=== PATIENT | female | born 1960 | race Caucasian/White ===

== ENCOUNTER 2024-07-10 12:42 | Inpatient (IN) | payer MEDICAID, SELFPAY ==
[2024-07-10] VITALS (14 sets, daily range): BP systolic 101–132; BP diastolic 44–69; PULSE 71–96; RESP 12–96; TEMP 36.1–37.2; O2SAT 94–99; BMI 25.0
--- NOTE | 2024-07-10 13:06 | EKG_ITS ---
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
--- NOTE | 2024-07-10 13:07 | XR_ITS ---
Examination: CT pelvis with intravenous contrast. 2-D sagittal and coronal reconstructions. Date and time of exam:July 10, 2024 at 1436 hours INDICATIONS: Boil in the vaginal region 9 days CTDI: vol (mGy) :9.4 DLP: (mGycm) : 242 Technique: Multiple 3 mm axial sections of the pelvis have been obtained with the 64 slice high resolution scanner. 60 cc Isovue 370 intravenous 2-D sagittal and coronal reconstructions. Low dose protocols were performed. One or more of the following dose reduction techniques were used; automated exposure control, adjustment of the mA and/or KV according to patient size, use of iterative reconstruction technique. Findings: No free fluid in the pelvis Atrophic anteverted uterus Urinary bladder is intact Mass in the uterus cervix not depicted Large fluid collection in the right labia axial image 117 at least 8.6 x 2.7 cm consistent with abscess This fluid collection extends to the right perianal region. IMPRESSION: Large fluid collection consistent with abscess in the right labia which extends to the right perianal region, recommend surgical consultation
--- NOTE | 2024-07-10 13:09 | PD.EDADULT ---
ED General RME/HPI General Chief complaint: Skin/Abscess/Foreign Body Stated complaint: BOIL IN VAGINAL AREA X9 DAYS Time Seen by Provider: 07/10/24 12:53 Arrival date/time: 07/10/24 12:42 CC: Right inner thigh pia-/vaginal pain HPI ongoing for the past 9 to 10 days with increase in severity, patient states it opened up 2 days ago and drained some but now is becoming increasingly large in size. Localized pain 6-8 on a 10 scale. Patient states she has had abscesses in this area on the left side in the past. Patient smokes approximately a pack a day has significant COPD. Patient denies chest pain shortness of breath painful urination bloody urination constipation or diarrhea. Related Data Home Medications ?Medication ?Instructions ?Recorded ?Confirmed albuterol sulfate 2.5 mg/3 mL 2.5 mg inhalation PRN PRN 10/28/23 07/10/24 (0.083 %) solution for nebulization Shortness Of Breath Or Wheezing atorvastatin 80 mg tablet 80 mg PO DAILY 10/28/23 07/10/24 fluticasone 500 mcg-salmeterol 50 1 inh inhalation PRN PRN Shortness 10/28/23 07/10/24 mcg/dose blistr powdr for Of Breath Or Wheezing inhalation (Advair Diskus) apixaban 5 mg tablet (Eliquis) 5 mg PO BID 07/10/24 07/10/24 famotidine 20 mg tablet 20 mg PO HS PRN stomach upset 07/10/24 07/10/24 furosemide 20 mg tablet 20 mg PO QDAY 07/10/24 07/10/24 insulin glargine 100 unit/mL (3 40 unit subcut HS 07/10/24 07/10/24 mL) subcutaneous pen (Basaglar KwikPen U-100 Insulin) metoprolol tartrate 25 mg tablet 12.5 mg PO QDAY 07/10/24 07/10/24 spironolactone 25 mg tablet 25 mg PO QDAY 07/10/24 07/10/24 Previous Rx's ?Medication ?Instructions ?Recorded aspirin 81 mg chewable tablet 81 mg PO DAILY 30 days #0 tabs 10/30/23 blood-glucose sensor (FreeStyle #1 ea 10/30/23 Praveen 3 Sensor device) Allergies Allergy/AdvReac Type Severity Reaction Status Date / Time No Known Allergies Allergy Verified 07/10/24 12:45 Review of Systems Review of Systems Narrative Review of Systems: GEN: No fever, no chills, no weight loss EYES: No discharge, no visual changes, no pain HEENT: No ear pain, no congestion, no sore throat PULM: No shortness of breath, no cough, no congestion CV: No chest pain, no dyspnea on exertion, no palpitations GI: No nausea, no vomiting, no diarrhea, no pain, no constipation : No frequency, no urgency, no dysuria MUSC/SKEL: No joint pain, no back pain SKIN: + abscess, No rash PSYCH: No hallucinations, no depression HEME/LYMPH: No easy bleeding or bruising tendencies NEURO: No weakness, no headache Past Medical History Past Medical History 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, pt not sure if has ashby's palsy.); Negative Seizures CARDIAC: Positive Myocardial Infarction, Coronary Artery Disease and Hypertension; Negative Congestive Heart Failure RESPIRATORY: Positive Chronic Obstructive Pulmonary Disease (COPD); Negative Asthma (no per pt) GENITOURINARY: Negative Renal Disease REPRODUCTIVE: Positive Previous Pregnancies ENDOCRINE: Positive Diabetes Mellitus Type 2; Negative Diabetes Mellitus Type 1 HEMATOLOGIC: Negative Blood Disorders or Anemia OTHER HISTORY: Negative Blood Transfusions or Anesthesia Reactions Family History FAMILY HISTORY: Positive Family Cardiac Disorders Surgical History SURGICAL: Positive Coronary Stent Social History SMOKING STATUS: Current every day smoker SUBSTANCE USE: does not use ED Exam Narrative Physical exam: [General: Mild discomfort but not in any acute distress, smells of cigarette smoke Head normocephalic HEENT: Eyes pupils are PERRLA EOMs intact mouth pink dry membranes uvula is midline swallow symmetrical within acceptable limits Neck is supple nontender Chest equal chest rise nontender to palpation Respiratory: Clear to auscultation no wheezes crackles or rubs CV: Rate rhythm is regular no murmurs rubs or clicks Abdomen is distended secondary to body habitus soft nontender no masses positive bowel sounds all 4 quadrants Back: No CVA tenderness no spinous process tenderness from cervical spine thoracic and lumbar spine Skin: Erythematous and edematous lateral of the right labia majora that extends down to the right buttock lateral to the perirectal area. Exquisitely tender to palpation no open sites no oozing of exudate. No active bleeding or lesions. Left side perianal area is unremarkable in nature nontender nonerythematous and nonedematous. Otherwise skin is intact no petechiae rash induration ulceration or crepitus Extremities: Moving all extremity against resistance cap refill less than 2 seconds neurosensory intact Neuro: Awake alert oriented x3 Glascow coma 15 no focal deficits] Course Quality Measures none Orders Category Date Time Status COVID-19 Screening Questionnaire NOW Care 07/10/24 16:[address] Screening NOW Care 07/10/24 13:07 Active Set Up [employer] Q4H START 00 Care 07/10/24 13:06 Active Continuous Pulse Oximetry STAT Care 07/10/24 13:06 Completed Decision to Admit X1 Care 07/10/24 16:27 Completed EKG (ED ONLY) *Do not use* NOW Care 07/10/24 13:06 Completed In and Out Catheter X1PRN Care 07/10/24 13:06 Active Insert IV NOW Care 07/10/24 13:06 Completed NPO STAT Care 07/10/24 13:06 Completed Saline [Insert IV] NOW Care 07/10/24 13:07 Completed Strict Intake and Output Routine Care 07/10/24 13:06 Ordered Consult to General Surgery Stat Cons 07/10/24 16:[address] pelvis w con Stat Exams 07/10/24 13:07 Completed EKG (ED Only) Stat Exams 07/10/24 13:06 Draft B-Type Natriuretic Peptide Stat Lab 07/10/24 13:30 Completed Blood Culture (Lab) Stat Lab 07/10/24 13:25 Received CBC Stat Lab 07/10/24 13:30 Completed Comprehensive Metabolic Panel Stat Lab 07/10/24 13:30 Completed LDH (Lactate Dehydrogenase) Stat Lab 07/10/24 13:30 Completed Lactate (Lactic Acid) Stat Lab 07/10/24 13:30 Completed Lactic Acid, 3 HR Stat Lab 07/10/24 16:55 Completed Lipase Stat Lab 07/10/24 13:30 Completed Magnesium Stat Lab 07/10/24 13:30 Completed Partial Thromboplastin Time Stat Lab 07/10/24 13:30 Completed Phosphorous Stat Lab 07/10/24 13:30 Completed Procalcitonin Stat Lab 07/10/24 13:30 Completed Prothrombin Time with INR Stat Lab 07/10/24 13:30 Completed Troponin I Stat Lab 07/10/24 13:30 Completed Urinalysis Stat Lab 07/10/24 15:25 Completed Urine Culture Stat Lab 07/10/24 15:25 Received Piper/Tazo 3.375 gm Premix [Zosyn] Med 07/10/24 13:08 Discontinued 3.375 gm in 50 ml IV X1 Ringers Lactated 1000 ml [Lactated Ringers] 1,000 ml Med 07/10/24 13:41 Discontinued IV 999 mls/hr Ringers Lactated 1000 ml [Lactated Ringers] 1,000 ml Med 07/10/24 13:41 Discontinued IV 999 mls/hr Sodium Chloride 0.9% 1000 ml [Ns] 1,000 ml Med 07/10/24 16:25 Discontinued IV 85 mls/hr Oxygen Delivery NOW RT 07/10/24 13:06 Active Vital Signs Vital signs: Vital Signs Temperature 98.9 F 07/10/24 12:54 Pulse Rate 96 07/10/24 12:54 Respiratory Rate 18 07/10/24 12:54 Blood Pressure 131/61 H 07/10/24 12:54 Pulse Oximetry (%) 99 07/10/24 12:54 Oxygen Delivery Method Room Air 07/10/24 12:54 Discharge Plan Plan Patient Disposition: Other Care w/in Hosp (SDC/XANDER) Problem List Clinical Impression: Abscess, perianal 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 Lab Interpretation Labs: interpreted by il Lab(s) interpretation(s): CBC shows a 19.9 WBCs, H&H of 15.5 and 44.7 with a platelet count of 444 no bands Coags within acceptable limits CMP shows sodium 133 chloride of 95 no other electrolyte imbalances no significant renal impairment, alk phos of 211, no other transaminitis or T. bili elevation Troponin is negative BMP within acceptable limits Lipase is 30 Imaging Imaging interpretation: interpreted by me Provider imaging interpretation(s): CT of the abdomen pelvis with IV contrast shows the patient has 6 significant fluid-filled area suggestive of an abscess that extends from the labia into the perianal area. Patient's case and laboratory results as well as clinical presentation presented to Dr. Leonardo, surgeon, who agrees to consult on the case will admit the patient to the hospitalist. Dr. Romeo, resident, for Dr. Tello, agrees to accept the patient for admission. Patient is in agreement with this plan. Patient has remained n.p.o. since last night. Medication Administration(s) Medication Administration History Acetaminophen (Acetaminophen 325 Mg Tablet) 650 mg PO Q6H PRN PRN Reason: Fever >99.5 Stop: 08/09/24 16:45 Acetaminophen (Acetaminophen 325 Mg Tablet) 1,000 mg PO Q6H PRN PRN Reason: PAIN SCALE 1-3 (mild Stop: 08/09/24 16:45 Hydrocodone Bitart/Acetaminophen (Hydrocodone/Apap 5/325 Tablet) 1 tab PO Q4HR PRN PRN Reason: Pain 4-6 Stop: 07/16/24 09:23 Last Admin: 07/11/24 11:35 Dose: 1 tab Documented By: LS Dapagliflozin (Dapagliflozin Propanediol 5 Mg Tablet) 10 mg PO QDAY [facility] Stop: 08/11/24 08:59 Dextrose (Dextrose 50%-Water Inj 50 Ml Syringe) 25 ml IV Q15MIN PRN PRN Reason: BG 50-70 responsive npo pt Stop: 08/09/24 16:49 Dextrose (Dextrose 50%-Water Inj 50 Ml Syringe) 50 ml IV Q15MIN PRN PRN Reason: BG <50 OR BG <70 & pt unresponsive Stop: 08/09/24 16:49 Furosemide (Furosemide 20 Mg Tablet) 20 mg PO QDAY [facility] Stop: 08/10/24 09:44 Last Admin: 07/11/24 10:21 Dose: 20 mg Documented By: LS Glucagon (Glucagon Inj 1 Mg Vial) 1 mg IM Q15MIN PRN PRN Reason: BG <70, and no IV access Piperacillin/Tazobactam/Dextrose (Zosyn) 3.375 gm in 50 mls @ 12.5 mls/hr IV Q8HR [facility] Stop: 07/17/24 21:59 Last Admin: 07/11/24 05:17 Dose: 12.5 mls/hr Documented By: Infusion: 07/11/24 02:04 Dose: Infused Documented By: Admin: 07/10/24 22:04 Dose: 12.5 mls/hr Documented By: CG Vancomycin/Sodium Chloride (Vancomycin/Ns 1 Gm Ivpb) 200 mls @ 120 mls/hr IV Q24H [facility]; Protocol Stop: 07/18/24 21:59 Insulin Glargine (Insulin Glargine (Lantus) 5 Unit/0.05 Ml (Per 5 Units)) 25 unit SC HS [facility] Stop: 08/10/24 20:59 Insulin Human Lispro (Insulin Lispro (Admelog) 1 Unit/0.01 Ml Unit) 0 unit SC AC [facility]; Protocol Stop: 08/09/24 16:59 Last Admin: 07/11/24 11:34 Dose: 4 unit Documented By: CHERRY Co-signed By: JERE Admin: 07/11/24 07:51 Dose: 4 unit Documented By: LEONIDAS Co-signed By: CHERRY Admin: 07/10/24 19:59 Dose: Not Given Documented By: SMILEY Non-Admin Reason: Per Protocol Morphine Sulfate (Morphine Sulf Inj 10 Mg/Ml Vial) 2 mg IVP Q4H PRN PRN Reason: PAIN SCALE 7-10 (Severe Stop: 07/15/24 16:45 Ondansetron HCl (Ondansetron Inj 2 Mg/Ml Inj 2 Ml) 4 mg IVP Q6H PRN; Protocol PRN Reason: NAUSEA OR VOMITING Stop: 08/09/24 16:45 Pharmacy Consult (Vancomycin Pharmacy To Dose 1 Each Each) 1 each IV QDAY PRN PRN Reason: CONSULT Stop: 08/10/24 08:59 Sennosides (Senna Tablet) 1 tab PO QDAY [facility]; Protocol Stop: 08/10/24 08:59 Last Admin: 07/11/24 10:23 Dose: Not Given Documented By: CHERRY Non-Admin Reason: Patient Refused Discontinued Medications Acetaminophen (Acetaminophen 325 Mg Tablet) 650 mg PO X1 ONE Stop: 07/11/24 03:58 Last Admin: 07/11/24 04:13 Dose: 650 mg Documented By: VELMA Apixaban (Apixaban 2.5 Mg Tablet) 5 mg PO BID [facility] Stop: 08/10/24 20:59 Dexamethasone Sodium Phosphate (Dexamethasone Sod Phos Inj 10 Mg/Ml Vial) Confirm Administered Dose 10 mg .ROUTE .STK-MED ONE Stop: 07/10/24 17:53 Esmolol HCl (Esmolol Inj 10 Mg/Ml Vial 10 Ml) Confirm Administered Dose 100 mg .ROUTE .STK-MED ONE Stop: 07/10/24 17:26 Fentanyl Citrate (Fentanyl Cit Inj 50 Mcg/Ml Amp 2ml) Confirm Administered Dose 100 mcg .ROUTE .STK-MED ONE Stop: 07/10/24 17:26 Fentanyl Citrate (Fentanyl Cit Inj 50 Mcg/Ml Amp 2ml) 50 mcg IVP Q5M PRN PRN Reason: PAIN SCALE 4-10(Mod-Sev Stop: 07/10/24 20:35 Last Admin: 07/10/24 18:47 Dose: 50 mcg Documented By: SMILEY Hydralazine HCl (Hydralazine Inj 20 Mg/Ml Vial) 5 mg IVP Q20M PRN PRN Reason: SEE COMMENTS Stop: 07/10/24 20:35 Piperacillin/Tazobactam/Dextrose (Zosyn) 3.375 gm in 50 mls @ 100 mls/hr IV X1 ONE Stop: 07/10/24 13:37 Last Infusion: 07/10/24 14:10 Dose: Infused Documented By: Admin: 07/10/24 13:40 Dose: 100 mls/hr Documented By: KAREEM Lactated Ringer's (Lactated Ringers) 1,000 mls @ 999 mls/hr IV .Q1H1M ONE Stop: 07/10/24 14:41 Last Infusion: 07/10/24 15:08 Dose: Infused Documented By: Admin: 07/10/24 14:07 Dose: 999 mls/hr Documented By: KAREEM Lactated Ringer's (Lactated Ringers) 1,000 mls @ 999 mls/hr IV .Q1H1M ONE Stop: 07/10/24 14:41 Last Infusion: 07/10/24 15:08 Dose: Infused Documented By: Admin: 07/10/24 14:07 Dose: 999 mls/hr Documented By: KAREEM Sodium Chloride (Ns) 1,000 mls @ 85 mls/hr IV .[id number] [facility] Stop: 08/09/24 16:24 Prothrombin Complex Concent ( Human) 2,000 unit/ Sterile Water 100 ml/ IV Miscellaneous Supplies 100 mls @ 400 mls/hr IV X1 ONE Stop: 07/10/24 17:34 Vancomycin/Sodium Chloride (Vancomycin/Ns 1 Gm Ivpb) 200 mls @ 120 mls/hr IV X1 ONE Stop: 07/10/24 19:49 Last Admin: 07/10/24 20:22 Dose: 120 mls/hr Documented By: VELMA Clindamycin Phosphate 900 mg/ (IV Miscellaneous Supplies) 50 mls @ 50 mls/hr IV Q8HR [facility] Stop: 07/17/24 21:59 Promethazine HCl 12.5 mg/ (Sodium Chloride) 50.5 mls @ 2.5 mls/min IV X1 PRN PRN Reason: NAUSEA OR VOMITING Stop: 07/10/24 20:35 Ketorolac Tromethamine (Ketorolac Inj 30 Mg/Ml Vial) 15 mg IVP X1 PRN PRN Reason: PAIN SCALE 4-10(Mod-Sev Stop: 07/15/24 18:34 Lidocaine HCl (Lidocaine Inj Pf 1% 2 Ml Vial) Confirm Administered Dose 2 ml .ROUTE .STK-MED ONE Stop: 07/10/24 17:40 Lidocaine HCl (Lidocaine Jelly 2% 5 Ml Tube) Confirm Administered Dose 5 ml .ROUTE .STK-MED ONE Stop: 07/10/24 17:33 Metoclopramide HCl (Metoclopramide Inj 5 Mg/Ml Vial 2 Ml) Confirm Administered Dose 10 mg .ROUTE .STK-MED ONE Stop: 07/10/24 17:26 Metoprolol Tartrate (Metoprolol Tartrate Inj 1 Mg/Ml Amp 5 Ml) 1 mg IVP Q5M PRN PRN Reason: TACHYCARDIA Stop: 07/11/24 18:33 Midazolam HCl (Midazolam Inj 1 Mg/Ml Vial 2 Ml) Confirm Administered Dose 2 mg .ROUTE .STK-MED ONE Stop: 07/10/24 17:30 Morphine Sulfate (Morphine Sulf Inj 10 Mg/Ml Vial) 2 mg IVP Q10M PRN PRN Reason: PAIN SCALE 4-10(Mod-Sev Stop: 07/10/24 20:35 Phenylephrine HCl (Phenylephrine Inj In Ns 100 Mcg/Ml 10 Ml Syringe) Confirm Administered Dose 1,000 mcg .ROUTE .STK-MED ONE Stop: 07/10/24 17:26 Propofol (Propofol Inj 10 Mg/Ml Vial 20 Ml) Confirm Administered Dose 200 mg IV .STK-MED ONE Stop: 07/10/24 17:26 Rocuronium [place] (Rocuronium Inj 10 Mg/Ml Vial 10 Ml) Confirm Administered Dose 100 mg .ROUTE .STK-MED ONE Stop: 07/10/24 17:26 Sugammadex Sodium (Sugammadex Inj 100 Mg/Ml 2ml Vial) Confirm Administered Dose 200 mg .ROUTE .STK-MED ONE Stop: 07/10/24 18:05
[2024-07-10 13:37] LABS: Lactate (Lactic Acid) 2.7 mMol/L (0.4-2.0)
[2024-07-10] MEDS: PIPER/TAZO 3.375 GM PREMIX 3.375 GM/50 ML BAG IV ×2 (13:40→22:04)
[2024-07-10 13:55] LABS: Basophils # (Auto) 0.1 Thou/mm3 (0.0-0.2); Basophils % (Auto) 1 % (0-2.5); Eosinophils # (Auto) 0.2 Thou/mm3 (0.0-0.5); Eosinophils % (Auto) 1 % (0-10); Hematocrit 44.7 % (36.0-46.0); Hemoglobin 15.5 g/dL (12.0-16.0); Immature Granulocytes % (Auto) 1 % (0-0); Immature Granulocytes Auto 0.11 Thou/mm3 (0.00-0.00); Lymphocytes # (Auto) 2.3 Thou/mm3 (1.0-4.8); Lymphocytes % (Auto) 12 % (10-50); Mean Corpuscular HGB Conc 34.7 g/dl (31.0-37.0); Mean Corpuscular Hemoglobin 29.3 pg (25.0-35.0); Mean Corpuscular Volume 85 fL (80-100); Monocytes # (Auto) 0.9 Thou/mm3 (0.0-0.8); Monocytes % (Auto) 4 % (0-12); Neutrophils # (Auto) 16.3 Thou/mm3 (1.8-7.7); Neutrophils % (Auto) 82 % (37-80); Nucleated Red Blood Cell % 0 /100 WBC (0); Platelet Count 444 Thou/mm3 (140-440); RDW Standard Deviation 41.1 fL (36.4-46.3); Red Blood Count 5.29 Miln/mm3 (4.00-5.20); White Blood Count 19.9 Thou/mm3 (3.6-11.0)
[2024-07-10 14:02] LABS: B-Type Natriuretic Peptide 66 pg/mL (0-100); INR 1.1 (0.9-1.3); Partial Thromboplastin Time 31.9 Seconds (22.0-36.0); Prothrombin Time 11.6 Seconds (9.0-12.2)
[2024-07-10 14:04] LABS: Alanine Aminotransferase 20 U/L (10-49); Albumin, Serum 4.9 gm/dL (3.4-4.8); Albumin/Globulin Ratio 1.3 (1.2-2.2); Alkaline Phosphatase 211 U/L (46-116); Anion Gap 11 (7-16); Aspartate Amino Transferase 17 U/L (0-34); BUN/Creatinine Ratio 10 Ratio (12-20); Bilirubin,Total 0.4 mg/dL (0.3-1.2); Blood Urea Nitrogen 8 mg/dL (9-23); Calcium 10.4 mg/dL (8.3-10.6); Calcium (Corrected) 10.4 mg/dL (8.5-10.1); Carbon Dioxide 26.7 mMol/L (20.0-31.0); Chloride 95 mMol/L (98-107); Creatinine (Component) 0.8 mg/dL (0.6-1.3); Estimated Creatinine Clearance 56.7 mL/min (>60); Globulin 3.8 gm/dL (2.3-3.5); Glucose 272 mg/dL (74-106); Lipase 30 U/L (12-53); Magnesium 1.8 mg/dL (1.6-2.6); Osmolality,Calculated 274 (275-295); Phosphorous 3.2 mg/dL (2.4-5.1); Potassium 3.5 mMol/L (3.4-5.1); Sodium 133 mMol/L (136-145); Total Protein 8.7 gm/dL (5.7-8.2); Troponin I < 0.020 ng/mL (0.0-0.045); eGFR > 60 See Note
[2024-07-10] MEDS: RINGERS LACTATED 1000 ML 1,000 ML 999 ML IV ×2 (14:07)
[2024-07-10 14:15] LABS: LDH (Lactate Dehydrogenase) 170 U/L (120-246)
[2024-07-10 15:46] LABS: Collection Type, Urine Clean Catch; RBC,Urine 0 /hpf (0-3)
[2024-07-10 16:05] LABS: Bacteria,Urine 2+; Bilirubin,Urine Negative (Negative); Blood,Urine Negative (Negative); Budding Yeast,Urine Present; Color,Urine Lt-Yellow (Lt Yel-Yel); Glucose, Urine 4+ (Negative); Ketones,Urine Negative (Negative); Leukocyte Esterase,Urine Negative (Negative); Nitrite,Urine Negative (Negative); PH,Urine 6.5 (5.0-7.0); Protein,Urine Negative (Neg - Trace); Squamous Epithelial Cell,Urine 13 /hpf (0-5); Urobilinogen,Urine Negative mg/dL (0.0-1.0); WBC,Urine 4 /hpf (0-5)
[2024-07-10 16:10] LABS: Clarity,Urine Hazy (Clear/Hazy); Specific Gravity,Urine 1.005 (1.001-1.035)
[2024-07-10 16:33] LABS: Reflex Lactate? Y
--- NOTE | 2024-07-10 17:00 | PD.RESHP ---
Documentation for date of: 07/10/24 HPI History of Present Illness Chief complaint: right buttock pain History of present illness: 64-year-old female with past medical history of CAD status post stents to left main coronary artery, history of ME, CHF with ejection fraction 20% (per patient), hypertension, diabetes mellitus, history of 2 prior abscesses presented to the ED due to pain in the buttocks. Patient noticed about 9 days ago she developed boil in her buttock area which initially drained, however subsequently stopped draining and increased in size and became painful and patient is unable to sit. Also some associated fevers noted by the patient and who is at bedside. In the ED pelvic CT was done and showed large fluid collection consistent with an abscess in the right labia which extends to the para right perianal region General Surgery was consulted and recommended admission for or intervention today. At this time patient denies headaches, chills, shortness of breath, chest pain, nausea, vomiting, diarrhea, urinary changes. Patient will be admitted for right labial abscess requiring surgical intervention. ED course: ED vitals: BP 131/61, HR 96, RR 18, O2 sat 99% on room air ED labs: Leukocytosis, thrombocytosis, mild hyponatremia, mild hypochloremia, glucose 272, lactic acid 2.7, alk phos 211, negative troponins, UA shows plus for glucose, some bacteria and yeast. Pelvic CT shows large fluid collection consistent with abscess in the right labia which extends to the right perianal region. In the ED patient received Zosyn, 1 L bolus LR x 2 PMHx: As above SxHx: Stent placement, tubal ligation Social Hx: Smokes a pack a day, denies alcohol use, denies illicit substances including THC FHx: Unknown Review of Systems Review of Systems Systems Reviewed: All systems reviewed, normal except as documented Narrative Review of Systems: All 12 systems reviewed and found normal unless otherwise stated in the HPI Exam Vital Signs Temp Pulse Resp BP Pulse Ox O2 Del Method 98.9 F 96 18 131/61 H 99 Room Air 07/10/24 12:54 07/10/24 12:54 07/10/24 12:54 07/10/24 12:54 07/10/24 12:54 07/10/24 12:54 Narrative Exam Physical Exam GENERAL: NAD, AAOx3 HEENT: Moist mucosa. Eyes open, symmetrical, & clear CARDIO: Heart RRR, no obvious murmurs PULM: No noted coughing/dyspnea CTA B/L, no R/W/R GI: Abdomen soft, nondistended, no pain on palpation. BSx4 : Right labial fluctuance, red hot and tender extending to the perianal region SKIN/MSK/EXT: No wounds/rashes/edema/amputations, no pain on palpation. Pedal pulses present B/L NEURO: AAOx3, no focal neuro deficits, able to move all 4 extremities Results: Labs 07/11/24 05:23 07/11/24 05:23 Labs: Short CBC 07/10/24 Range/Units 13:30 WBC 19.9 H (3.6-11.0) Thou/mm3 Hgb 15.5 (12.0-16.0) g/dL Hct 44.7 (36.0-46.0) % Plt Count 444 H (140-440) Thou/mm3 BMP 07/10/24 13:30 Sodium 133 L Potassium 3.5 Chloride 95 L Carbon Dioxide 26.7 BUN 8 L Creatinine 0.8 Glucose 272 H Calcium 10.4 Cardiac Enzymes 07/10/24 Range/Units 13:30 Troponin I < 0.020 (0.0-0.045) ng/mL Liver Function 07/10/24 Range/Units 13:30 Total Bilirubin 0.4 (0.3-1.2) mg/dL AST 17 (0-34) U/L ALT 20 (10-49) U/L Alkaline Phosphatase 211 H (46-116) U/L Albumin 4.9 H (3.4-4.8) gm/dL Urine 07/10/24 Range/Units 15:25 Urine Color Lt-Yellow (Lt Yel-Yel) Urine Clarity Hazy (Clear/Hazy) Urine pH 6.5 (5.0-7.0) Ur Specific [place] 1.005 (1.001-1.035) Urine Protein Negative (Neg - Trace) Urine Glucose (UA) 4+ A (Negative) Quality Measures Quality Measures VTE prophylaxis Medications Home Medications and Allergies Home Medications ?Medication ?Instructions ?Recorded ?Confirmed ?Type albuterol sulfate 2.5 mg/3 mL 2.5 mg inhalation PRN PRN 10/28/23 07/10/24 History (0.083 %) solution for nebulization Shortness Of Breath Or Wheezing atorvastatin 80 mg tablet 80 mg PO DAILY 10/28/23 07/10/24 History fluticasone 500 mcg-salmeterol 50 1 inh inhalation PRN PRN Shortness 10/28/23 07/10/24 History mcg/dose blistr powdr for Of Breath Or Wheezing inhalation (Advair Diskus) apixaban 5 mg tablet (Eliquis) 5 mg PO BID 07/10/24 07/10/24 History dapagliflozin propanediol 10 mg 10 mg PO QDAY 07/10/24 07/10/24 History tablet (Farxiga) famotidine 20 mg tablet 20 mg PO HS PRN stomach upset 07/10/24 07/10/24 History furosemide 20 mg tablet 20 mg PO QDAY 07/10/24 07/10/24 History insulin glargine 100 unit/mL (3 40 unit subcut HS 07/10/24 07/10/24 History mL) subcutaneous pen (Eco-Siteaglar WorkingPointchinoPen U-100 Insulin) metoprolol tartrate 25 mg tablet 12.5 mg PO QDAY 07/10/24 07/10/24 History spironolactone 25 mg tablet 25 mg PO QDAY 07/10/24 07/10/24 History Allergies Allergy/AdvReac Type Severity Reaction Status Date / Time No Known Allergies Allergy Verified 07/10/24 12:45 Visit Medications Acetaminophen (Acetaminophen 325 Mg Tablet) 650 mg PO Q6H PRN PRN Reason: Fever >99.5 Stop: 08/09/24 16:45 Acetaminophen (Acetaminophen 325 Mg Tablet) 1,000 mg PO Q6H PRN PRN Reason: PAIN SCALE 1-3 (mild Stop: 08/09/24 16:45 Dextrose (Dextrose 50%-Water Inj 50 Ml Syringe) 25 ml IV Q15MIN PRN PRN Reason: BG 50-70 responsive npo pt Stop: 08/09/24 16:49 Dextrose (Dextrose 50%-Water Inj 50 Ml Syringe) 50 ml IV Q15MIN PRN PRN Reason: BG <50 OR BG <70 & pt unresponsive Stop: 08/09/24 16:49 Glucagon (Glucagon Inj 1 Mg Vial) 1 mg IM Q15MIN PRN PRN Reason: BG <70, and no IV access Sodium Chloride (Ns) 1,000 mls @ 85 mls/hr IV .[id number] [facility] Stop: 08/09/24 16:24 Piperacillin/Tazobactam/Dextrose (Zosyn) 3.375 gm in 50 mls @ 12.5 mls/hr IV Q8HR [facility] Stop: 07/17/24 21:59 Insulin Human Lispro (Insulin Lispro (Admelog) 1 Unit/0.01 Ml Unit) 0 unit SC AC [facility]; Protocol Stop: 08/09/24 16:59 Morphine Sulfate (Morphine Sulf Inj 10 Mg/Ml Vial) 2 mg IVP Q4H PRN PRN Reason: PAIN SCALE 7-10 (Severe Stop: 07/15/24 16:45 Ondansetron HCl (Ondansetron Inj 2 Mg/Ml Inj 2 Ml) 4 mg IVP Q6H PRN; Protocol PRN Reason: NAUSEA OR VOMITING Stop: 08/09/24 16:45 Sennosides (Senna Tablet) 1 tab PO QDAY [facility]; Protocol Stop: 08/10/24 08:59 Discontinued Medications Piperacillin/Tazobactam/Dextrose (Zosyn) 3.375 gm in 50 mls @ 100 mls/hr IV X1 ONE Stop: 07/10/24 13:37 Last Infusion: 07/10/24 14:10 Dose: Infused Lactated Ringer's (Lactated Ringers) 1,000 mls @ 999 mls/hr IV .Q1H1M ONE Stop: 07/10/24 14:41 Last Admin: 07/10/24 14:07 Dose: 999 mls/hr Lactated Ringer's (Lactated Ringers) 1,000 mls @ 999 mls/hr IV .Q1H1M ONE Stop: 07/10/24 14:41 Last Admin: 07/10/24 14:07 Dose: 999 mls/hr Assessment & Plan Plan 64-year-old female with past medical history of hypertension, CAD status post stenting left main coronary artery, prior history of ME, diabetes, CHF with ejection fraction 20% who presented to the ED due to right labial abscess. Patient will be admitted for management of right labial abscess extending to the perianal region requiring surgical intervention. #Right labial abscess extending to the perianal region #Lactic acidosis-resolved Patient had onset of right buttock pain about 9 days ago Initially abscess was drained by itself however suddenly stopped draining and increased in size until it became tender and patient was unable to sit in a chair or lay down CT pelvis shows large fluid collection consistent with an abscess in the right labia which extends to the right perianal region Lactic acidosis resolved after IVFs ? On Zosyn (07/10/2024? ? General Surgery consulted, appreciate recommendations ? Pain control ? On IV fluids ? N.p.o. for possible surgical intervention ? Follow-up cultures ? Follow-up lactic acid #Diabetes mellitus type 2 Last A1c:8.9 (10/28/2023) Patient uses 40 units insulin at night ? SSI ? 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 Pending med rec Health Maintenance: Disposition: Med telemetry, pending OR Fluids: NS Feeding: N.p.o. for procedure Thrombo prophylaxis: SCDs Gastric Ulcer prophylaxis: Not indicated CODE STATUS: Full code Case discussed with my attending Dr. Omer Elizabeth MD PGY-1 Attending Provider Attestation/Addendum I, Shirley Tello DO, attest that I was physically present for the freeman portions of the service and evaluated the patient with the resident and I reviewed and discussed the case with the resident and agree with the resident's findings and plans of care as documented above Patient is a 64-year-old female with past medical history of CAD status post PCI and stents, ischemic cardiomyopathy with an EF of 20%, hypertension, diabetes mellitus who presented to the ED due to worsening pain in her right buttock radiating down to her perennial region. Patient states that it had started as a boil which she has had in the past and had lanced until it outpatient. She states that she it had been draining 2 days prior, but stopped and has since gotten larger and more painful such that she is unable to sit. CT abdomen pelvis was done in the ED showing a large fluid collections consistent with abscess in the right labia extending to the right perineal region. Patient was noted to have an elevated white blood cell count of 19.9 on presentation with hypotension, thrombocytosis of 444, mild hyponatremia 133 and lactic acid of 2.7. She received 2 L of IV fluids and IV Zosyn. Patient was seen evaluated with surgeon at bedside. Patient is scheduled for I&D this evening. Patient states that she is on Eliquis and last took her Eliquis this morning. Will give Kcentra and have FFP and 2 units of PRBCs on hold. Patient has not eaten since last night. Will cover with broad-spectrum antibiotics due to concern for necrotizing fasciitis. Will start on IV Zosyn, vancomycin and clindamycin. Will follow-up with operative report. Will follow-up with blood cultures and wound cultures. Will admit patient to telemetry for further workup and medical management of perennial abscess and cellulitis.
[2024-07-10 17:02] LABS: Lactic Acid, 3 HR 1.5 mMol/L (0.4-2.0)
--- NOTE | 2024-07-10 17:36 | PD.SURCONS ---
HPI Consult details History of present illness: 64F with CAD s/p stent placement 10/2023 on Eliquis, CHF, DM presenting with right perineal pain. Patient reports she noticed pain and swelling a few days ago, initially the area has been draining on its own and she felt better but the pain and swelling continued to progress prompting her to seek care in ER. She feels otherwise well, denies fever or malaise, however on presentation she has WBC almost [address] findings of an abscess up to 8 cm PMH: CAD, CHF, DM PSH: Incision of left perineal abscess in the past Meds: Includes Eliquis, last taken this morning Allergies: NKDA Social history: Cigarette smoker Review of Systems Review of Systems ROS Unobtainable: All systems reviewed & no additional complaints except as documented Meds Home Medications and Allergies Home Medications ?Medication ?Instructions ?Recorded ?Confirmed ?Type metformin 1,000 mg tablet 1,000 mg PO BID 05/05/23 10/28/23 History albuterol sulfate 2.5 mg/3 mL 2.5 mg inhalation PRN PRN 10/28/23 10/28/23 History (0.083 %) solution for nebulization Shortness Of Breath Or Wheezing atorvastatin 80 mg tablet 80 mg PO DAILY 10/28/23 10/28/23 History fluticasone 500 mcg-salmeterol 50 1 inh inhalation PRN PRN Shortness 10/28/23 10/28/23 History mcg/dose blistr powdr for Of Breath Or Wheezing inhalation (Advair Diskus) Allergies Allergy/AdvReac Type Severity Reaction Status Date / Time No Known Allergies Allergy Verified 07/10/24 12:45 Exam Vital Signs Temp Pulse Resp BP Pulse Ox O2 Del Method 98.9 F 96 18 131/61 H 99 Room Air 07/10/24 12:54 07/10/24 12:54 07/10/24 12:54 07/10/24 12:54 07/10/24 12:54 07/10/24 12:54 Constitutional Constitutional: no acute distress Routine Respiratory Exam Respiratory: Present no resp distress Routine Exam Comments: Right labial erythema, area is very indurated and tender Results Results: Laboratory Laboratory results: results reviewed Assessment & Plan Plan 64F with CAD s/p stent placement 10/2023 on Eliquis, CHF, DM presenting with right perineal pain with findings of large abscess. I explained risks of bleeding and the potential for further procedures in the event there is necrotic tissue, as well as that the wound will need to be left open to heal by secondary intention. All questions were answered and patient agrees to proceed
--- NOTE | 2024-07-10 18:16 | PD.SUROPNT ---
Date of Procedure 07/10/24 Pre Op Diagnosis Right perineal abscess Post Op Diagnosis Same Procedure Incision and drainage of right perineal abscess Findings Right perineal abscess containing copious pus Procedure Description After discussion of risks and benefits, pt was brought to OR and general anesthesia was induced. She had already received antibiotics preoperatively. Pt was placed in lithotomy position with proper padding and was prepped and draped in the usual sterile fashion. After timout the area of most fluctuance at the right perineum, posterior to the vagina and anterior to the anus was incised with a #15 blade with immediate return of pus from which a culture was taken. The incision was extended approx 4cm in AP dimension and the wound was probed to break up any loculations. Approximately 30cc of pus was expressed. The wound was irrigated with betadine and saline and no bleeding was noted. The wound was packed with moistened kerlix and covered with an abdominal pad which was secured with surgical underwear. Pt was returned to supine position and extubated without complication. She was brought to PACU in stable condition Pathology / specimen Other (Wound culture) Estimated Blood Loss 10 Surgeon Maria Isbell MD Surgical Staff Operation Date: 07/10/24 17:30 <No data on this case meets the specified criteria>
--- NOTE | 2024-07-10 18:30 | SUR.PHASEI ---
pt received from OR in recovery bay 1. pt asleep but responds to voice, breathing unlabored on nc 4l. v/s stable. pt dressing to perineal area cdi. scant bleeding noted underneath dressing. report received from Brody RICKETTS and Dr. Scott.
[2024-07-10] MEDS: fentaNYL CIT INJ 50 mCg/ML AMP 2ML IVP (18:47)
--- NOTE | 2024-07-10 18:51 | SUR.PHASEI ---
pt able to tolerate ice chips without difficulty swallowing or nausea/vomiting.
--- NOTE | 2024-07-10 19:44 | SUR.PHASEI ---
Pt awake and alert, breathing unlabored on 2l nc. v/s stable. pt dressing to perineal area cdi. moderate bleeding noted underdressing. report called to Mervat RICKETTS. pt will be transferred to room at this time.
[2024-07-10] MEDS: VANCOMYCIN/NS 1 GM IVPB 200 ML IV (20:22)
[2024-07-11] VITALS (10 sets, daily range): BP systolic 104–132; BP diastolic 50–67; PULSE 60–82; RESP 15–99; TEMP 36.1–36.6; O2SAT 94–98
--- NOTE | 2024-07-11 01:39 | PC.NURSE ---
Verified with MD Alvarez regarding PRBC and FFP ordered by MD Quan Elizabeth, hgb was 15.5, pt has Incision and Drainange of right perineal abscess with MD Isbell this afternoon, per MD will wait for labs in [place] and go from there.
[2024-07-11] MEDS: ACETAMINOPHEN 325 MG TABLET 650 MG PO (04:13)
[2024-07-11] MEDS: PIPER/TAZO 3.375 GM PREMIX 3.375 GM/50 ML BAG IV ×3 (05:17→22:49)
[2024-07-11 06:24] LABS: Basophils # (Auto) 0.1 Thou/mm3 (0.0-0.2); Basophils % (Auto) 0 % (0-2.5); Eosinophils % (Auto) 0 % (0-10); Hematocrit 38.7 % (36.0-46.0); Immature Granulocytes % (Auto) 1 % (0-0); Immature Granulocytes Auto 0.19 Thou/mm3 (0.00-0.00); Lymphocytes # (Auto) 1.4 Thou/mm3 (1.0-4.8); Lymphocytes % (Auto) 6 % (10-50); Mean Corpuscular HGB Conc 33.6 g/dl (31.0-37.0); Mean Corpuscular Hemoglobin 28.8 pg (25.0-35.0); Mean Corpuscular Volume 86 fL (80-100); Monocytes # (Auto) 0.2 Thou/mm3 (0.0-0.8); Monocytes % (Auto) 1 % (0-12); Neutrophils # (Auto) 21.4 Thou/mm3 (1.8-7.7); Neutrophils % (Auto) 92 % (37-80); Nucleated Red Blood Cell % 0 /100 WBC (0); Platelet Count 387 Thou/mm3 (140-440); RDW Standard Deviation 41.1 fL (36.4-46.3); Red Blood Count 4.51 Miln/mm3 (4.00-5.20); White Blood Count 23.3 Thou/mm3 (3.6-11.0)
[2024-07-11 06:49] LABS: Alanine Aminotransferase 12 U/L (10-49); Albumin, Serum 3.6 gm/dL (3.4-4.8); Albumin/Globulin Ratio 1.4 (1.2-2.2); Alkaline Phosphatase 160 U/L (46-116); Anion Gap 11 (7-16); Aspartate Amino Transferase 15 U/L (0-34); BUN/Creatinine Ratio 11 Ratio (12-20); Bilirubin,Total 0.3 mg/dL (0.3-1.2); Blood Urea Nitrogen 8 mg/dL (9-23); Calcium 8.9 mg/dL (8.3-10.6); Calcium (Corrected) 9.2 mg/dL (8.5-10.1); Chloride 101 mMol/L (98-107); Creatinine (Component) 0.7 mg/dL (0.6-1.3); Estimated Creatinine Clearance 64.1 mL/min (>60); Globulin 2.5 gm/dL (2.3-3.5); Glucose 258 mg/dL (74-106); Magnesium 1.8 mg/dL (1.6-2.6); Osmolality,Calculated 281 (275-295); Phosphorous 4.6 mg/dL (2.4-5.1); Potassium 4.4 mMol/L (3.4-5.1); Sodium 137 mMol/L (136-145); Total Protein 6.1 gm/dL (5.7-8.2); eGFR > 60 See Note
[2024-07-11] MEDS: INSULIN LISPRO (AdmeLOG) 1 UNIT/0.01 ML UNIT SC ×4 (07:51→20:25)
[2024-07-11 08:28] LABS: Glucose Estimated Average 309 mg/dL (80-131); Hemoglobin A1C 12.4 % Hgb (4.8-6.0)
[2024-07-11] MEDS: Furosemide 20 MG TABLET PO (10:21)
[2024-07-11] MEDS: HYDROcodone/APAP 5/325 TABLET 1 TAB PO ×2 (11:35→21:20)
--- NOTE | 2024-07-11 11:35 | PD.RESPRO ---
Documentation for date of: 07/11/24 Subjective Subjective Interval history: 07/11/2024: Overnight the patient had incision and drainage for 8.6 x 2.7 right labial abscess without any acute complications. Patient seen and examined in hospital bed denies having any concerning symptoms at this time. Urine and blood cultures are still pending; moreover, perineal wound cultures rare GPC pending speciation. Patient continues to be on IV vancomycin and we will continue IV antibiotics at this time. Patient also restarted on home Lasix dose; however, we will discontinue Farxiga on discharge. Exam Vital Signs Temp Pulse Resp BP Pulse Ox O2 Del Method O2 Flow Rate 97.5 F 82 18 132/66 H 98 Room Air 2 07/11/24 08:00 07/11/24 10:21 07/11/24 08:32 07/11/24 10:21 07/11/24 08:00 07/11/24 08:00 07/10/24 19:30 Narrative Exam Physical Exam: GENERAL: Awake, answering questions appropriately, appears stated age HEENT: Moist mucosa. Eyes open, symmetrical, & clear CARDIO: Heart RRR, no obvious murmurs PULM: No noted coughing/dyspnea CTA B/L, no R/W/R GI: Abdomen soft, nondistended, no pain on palpation. BSx4 : Right labia region erythamtous; perineal bandage oozing pink/blood minimally SKIN/MSK/EXT: No wounds/rashes/edema/amputations, no pain on palpation. Pedal pulses present B/L NEURO: AAOx3, no focal neuro deficits, able to move all 4 extremities Objective Labs 07/12/24 05:16 07/12/24 05:16 Labs: Laboratory Results - last 24 hr 07/10/24 07/10/24 07/10/24 13:30 15:25 16:55 WBC 19.9 H RBC 5.29 H Hgb 15.5 Hct 44.7 MCV 85 MCH 29.3 MCHC 34.7 RDW Std Deviation 41.1 Plt Count 444 H Neut % (Auto) 82 H Lymph % (Auto) 12 [place] % (Auto) 4 Eos % (Auto) 1 Baso % (Auto) 1 Neut # (Auto) 16.3 H Lymph # (Auto) 2.3 [place] # (Auto) 0.9 H Eos # (Auto) 0.2 Baso # (Auto) 0.1 Immature Gran # (Auto) 0.11 H Absolute Nucleated RBC 0.00 Immature Gran % 1 H Nucleated RBC % 0 PT 11.6 INR 1.1 APTT 31.9 Sodium 133 L Potassium 3.5 Chloride 95 L Carbon Dioxide 26.7 Anion Gap 11 BUN 8 L Creatinine 0.8 Estim Creat Clear Calc 56.7 L eGFR > 60 BUN/Creatinine Ratio 10 L Glucose [address] Glu mg/dL Hemoglobin A1c Calculated Osmolality 274 L Lactic Acid 2.7 H 1.5 Calcium 10.4 Corrected Calcium 10.4 H Phosphorus 3.2 Magnesium 1.8 Total Bilirubin 0.4 AST 17 ALT 20 Alkaline Phosphatase 211 H Lactate Dehydrogenase 170 Troponin I < 0.020 B-Natriuretic Peptide 66 Total Protein 8.7 H Albumin 4.9 H Globulin 3.8 H Albumin/Globulin Ratio 1.3 Lipase 30 Procalcitonin 0.10 Ur Collection Type Clean Catch Urine Color Lt-Yellow Urine Clarity Hazy Urine pH 6.5 Ur Specific [place] 1.005 Urine Protein Negative Urine Glucose (UA) 4+ A Urine Ketones Negative Urine Blood Negative Urine Nitrite Negative Urine Bilirubin Negative Urine Urobilinogen (Auto) Negative Ur Leukocyte Esterase Negative Urine RBC 0 Urine WBC 4 Ur Squamous Epith Cells 13 H Urine Bacteria 2+ A Urine Yeast (Budding) Present A Blood Type Antibody Screen Crossmatch Blood Bank Wristband ID Blood Bank Comment 07/10/24 07/11/24 19:11 05:23 WBC 23.3 H RBC 4.51 Hgb 13.0 D Hct 38.7 MCV 86 MCH 28.8 MCHC 33.6 RDW Std Deviation 41.1 Plt Count 387 D Neut % (Auto) 92 H Lymph % (Auto) 6 L [place] % (Auto) 1 Eos % (Auto) 0 Baso % (Auto) 0 Neut # (Auto) 21.4 H Lymph # (Auto) 1.4 [place] # (Auto) 0.2 Eos # (Auto) 0.0 Baso # (Auto) 0.1 Immature Gran # (Auto) 0.19 H Absolute Nucleated RBC 0.00 Immature Gran % 1 H Nucleated RBC % 0 PT INR APTT Sodium 137 Potassium 4.4 D Chloride 101 Carbon Dioxide 25.0 Anion Gap 11 BUN 8 L Creatinine 0.7 Estim Creat Clear Calc 64.1 eGFR > 60 BUN/Creatinine Ratio 11 L Glucose [address] Glu mg/dL 309 H Hemoglobin A1c 12.4 H Calculated Osmolality 281 Lactic Acid Calcium 8.9 D Corrected Calcium 9.2 Phosphorus 4.6 Magnesium 1.8 Total Bilirubin 0.3 AST 15 ALT 12 Alkaline Phosphatase 160 H D Lactate Dehydrogenase Troponin I B-Natriuretic Peptide Total Protein 6.1 Albumin 3.6 D Globulin 2.5 Albumin/Globulin Ratio 1.4 Lipase Procalcitonin Ur Collection Type Urine Color Urine Clarity Urine pH Ur Specific [place] Urine Protein Urine Glucose (UA) Urine Ketones Urine Blood Urine Nitrite Urine Bilirubin Urine Urobilinogen (Auto) Ur Leukocyte Esterase Urine RBC Urine WBC Ur Squamous Epith Cells Urine Bacteria Urine Yeast (Budding) Blood Type O Positive Antibody Screen NEGATIVE Crossmatch See Detail Blood Bank Wristband ID Yes Blood Bank Comment FFP Ready Quality Measures Quality Measures VTE prophylaxis Assessment & Plan Assessment Current Active Medications: Generic Name Dose Route Start Last Admin Trade Name Freq PRN Reason Stop Dose Admin Acetaminophen 650 mg 07/10/24 16:46 Acetaminophen 325 Mg Tablet PO 08/09/24 16:45 Q6H PRN Fever >99.5 Acetaminophen 1,000 mg 07/10/24 16:46 Acetaminophen 325 Mg Tablet PO 08/09/24 16:45 Q6H PRN PAIN SCALE 1-3 (mild Hydrocodone Bitart/Acetaminophen 1 tab 07/11/24 09:24 Hydrocodone/Apap 5/325 Tablet PO 07/16/24 09:23 Q4HR PRN Pain 4-6 Dapagliflozin 10 mg 07/12/24 09:00 Dapagliflozin Propanediol 5 Mg Tablet PO 08/11/24 08:59 QDAY SABRINA Dextrose 25 ml 07/10/24 16:50 Dextrose 50%-Water Inj 50 Ml Syringe IV 08/09/24 16:49 Q15MIN PRN BG 50-70 responsive npo pt Dextrose 50 ml 07/10/24 16:50 Dextrose 50%-Water Inj 50 Ml Syringe IV 08/09/24 16:49 Q15MIN PRN BG <50 OR BG <70 & pt unresponsive Furosemide 20 mg 07/11/24 09:45 07/11/24 10:21 Furosemide 20 Mg Tablet PO 08/10/24 09:44 20 mg QDAY SABRINA Administration Glucagon 1 mg 07/10/24 16:50 Glucagon Inj 1 Mg Vial IM Q15MIN PRN BG <70, and no IV access Piperacillin/Tazobactam/Dextrose 3.375 gm in 50 mls @ 12.5 mls/hr 07/10/24 22:00 07/11/24 05:17 Zosyn IV 07/17/24 21:59 12.5 mls/hr Q8HR SABRINA Administration Vancomycin/Sodium Chloride 200 mls @ 120 mls/hr 07/11/24 22:00 Vancomycin/Ns 1 Gm Ivpb IV 07/18/24 21:59 Q24H SABRINA Protocol Insulin Glargine 25 unit 07/11/24 21:00 Insulin Glargine (Lantus) 5 Unit/0.05 Ml (Per 5 Units) SC 08/10/24 20:59 HS SABRINA Insulin Human Lispro 0 unit 07/10/24 17:00 07/11/24 07:51 Insulin Lispro (Admelog) 1 Unit/0.01 Ml Unit SC 08/09/24 16:59 4 unit AC SABRINA Administration Protocol Morphine Sulfate 2 mg 07/10/24 16:46 Morphine Sulf Inj 10 Mg/Ml Vial IVP 07/15/24 16:45 Q4H PRN PAIN SCALE 7-10 (Severe Ondansetron HCl 4 mg 07/10/24 16:46 Ondansetron Inj 2 Mg/Ml Inj 2 Ml IVP 08/09/24 16:45 Q6H PRN NAUSEA OR VOMITING Protocol Pharmacy Consult 1 each 07/11/24 09:00 Vancomycin Pharmacy To Dose 1 Each Each IV 08/10/24 08:59 QDAY PRN CONSULT Sennosides 1 tab 07/11/24 09:00 07/11/24 10:23 Senna Tablet PO 08/10/24 08:59 Not Given QDAY SABRINA Protocol Plan 64-year-old female with past medical history of hypertension, CAD status post stenting left main coronary artery, prior history of [place], diabetes, CHF with ejection fraction 20% who presented to the ED due to right labial abscess. Patient will be admitted for management of right labial abscess extending to the perianal region requiring surgical intervention. #Right labial abscess extending to the perianal region #Lactic acidosis-resolved Patient had onset of right buttock pain about 9 days ago Initially abscess was drained by itself however suddenly stopped draining and increased in size until it became tender and patient was unable to sit in a chair or lay down CT pelvis shows large fluid collection consistent with an abscess in the right labia which extends to the right perianal region Lactic acidosis resolved after IVFs Status-post I&D with General Surgery Perineal wound cultures with gram-positive cocci pending speciation Plan: Continue IV Zosyn 3.375 every 8 hours and IV vancomycin pharmacy to dose General Surgery consulted, appreciate recommendations Multimodal pain management Follow-up on blood and urine cultures #Insulin-dependent type 2 diabetes Last A1c:8.9 (10/28/2023) Patient uses 40 units insulin at night Plan: Initiated glargine 25 units at bedtime SSI #Hypertension #Coronary artery disease status post stents to left main coronary artery #History of prior [place] #CHF [EF 20-25%] 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 twice daily, aspirin 81 mg daily, atorvastatin 80 mg, furosemide 20 mg, metoprolol tartrate 12.5 mg p.o. daily, spironolactone 25 mg Plan: Will discontinue Farxiga on discharge Pending surgery recommendations regarding restarting Eliquis; will resume 07/12 Restarted patient's Lasix 20 mg p.o. Health Maintenance: Disposition: Med telemetry, pending cultures Fluids: NS Diet: Carb consistent DVT prophylaxis: SCDs GI prophylaxis: Not indicated CODE STATUS: Full code Patient seen and examined with attending Dr. Omer Simon, PGY-1 Attending Provider Attestation/Addendum Shirley Dickens, , attest that I was physically present for the freeman portions of the service and evaluated the patient with the resident and I reviewed and discussed the case with the resident and agree with the resident's findings and plans of care as documented above Patient seen and evaluated this AM. She has been ambulating in hallway without issue, she reports pain, but different from presentation. Incision appears clean, dry and intact. Tenderness to palpation, no fluctuation, improvement of erythema and edema of right labia. Wound cultures pending. F/u with surgery recs and continue wtih pain control PRN. OK to continue with eliquis tomorrow per surgeon. Will DC farxiga due to UTI and perineal cellulitis/ abscess. Patient denies any shortness of breath, chest pain, fevers or chills.
--- NOTE | 2024-07-11 12:22 | PC.NURSE ---
Dr. Isbell in to see pt
[2024-07-11] MEDS: ACETAMINOPHEN IVPB 1,000 MG/100 ML VIAL 250 MG IV (13:02)
--- NOTE | 2024-07-11 14:34 | PD.SURPROG ---
Documentation for date of: 07/11/24 Subjective Subjective Brief History: 64F with CAD s/p stent placement 10/2023 on Eliquis, CHF, DM presenting with right perineal pain. Patient reports she noticed pain and swelling a few days ago, initially the area has been draining on its own and she felt better but the pain and swelling continued to progress prompting her to seek care in ER. She feels otherwise well, denies fever or malaise, however on presentation she has WBC almost [address] findings of an abscess up to 8 cm PMH: CAD, CHF, DM PSH: Incision of left perineal abscess in the past Meds: Includes Eliquis, last taken this morning Allergies: NKDA Social history: Cigarette smoker Narrative: Pain well-controlled at rest, remaining afebrile, fingersticks in 300s today Exam Vital Signs Temp Pulse Resp BP Pulse Ox O2 Del Method O2 Flow Rate 97.7 F 72 18 130/64 98 Room Air 2 07/11/24 12:00 07/11/24 12:00 07/11/24 12:00 07/11/24 12:00 07/11/24 12:00 07/11/24 12:00 07/10/24 19:30 Constitutional Constitutional: no acute distress Routine Respiratory Exam Respiratory: Present no resp distress Routine Exam Comments: Right perineal incision with minimal surrounding erythema Results Results: Laboratory Laboratory results: results reviewed Assessment & Plan Plan 64F with CAD s/p stent placement 10/2023 on Eliquis, CHF, DM presenting with right perineal pain with findings of large abscess s/p urgent I&D 07/10, recovering well Follow-up cultures Daily packing changes Procedures Procedures Incision and drainage of right perineal abscess
[2024-07-11] MEDS: MORPHINE SULF INJ 10 MG/ML VIAL 4 MG IVP (14:43)
--- NOTE | 2024-07-11 14:57 | PC.SS ---
rounding note: abscess; pending labs
--- NOTE | 2024-07-11 16:18 | PC.SS ---
Lizeth Braga is 64 year old female admitted to [facility] for Abscess. SS conducted bedside contact with the patient to complete initial assessment and to discuss discharge planning.? SW used all precautionary measures to complete initial. Role and reason for the contact was explained to Lizeth. Pt is alert and oriented times 4. Patient confirmed demographic information and on facesheet and lives with family. Patient identifies Emmanuel Braga, spouse, as surrogate decision maker. Pt states prior to hospitalization she is able to complete all ADL?s independently. Pt does not use DME nor O2. Pt confirmed no history of mental health or substance abuse. Pt has diabetes and takes insulin injections and has glucose monitor; pt does not have dialysis. Pts PCP is Brody Guaman, last visit was about a month. [facility] choice [facility]. Advance life directive discussed and pt receptive, SS left information. Discharge options discussed and the pt return home. Family will provide transportation upon DC. No further intervention required at this time, social services manager would be available to address any further concerns. DC Plan: Home Contact: Emmanuel Braga, spouse, Address: Confirmed on face sheet PCP: Brody Guaman
[2024-07-11] MEDS: INSULIN GLARGINE (Lantus) 5 UNIT/0.05 ML (PER 5 UNITS) 25 UNIT SC (20:25)
[2024-07-11] MEDS: VANCOMYCIN/NS 1 GM IVPB 200 ML IV (21:06)
[2024-07-12] VITALS (12 sets, daily range): BP systolic 97–131; BP diastolic 48–67; PULSE 57–76; RESP 16–97; TEMP 36.1–36.4; O2SAT 94–98; BMI 24.5
--- NOTE | 2024-07-12 04:47 | PC.NURSE ---
Per it support technician, Pt had a 3-second pause on the case picker. Pt awake, asymptomatic. Dr. Alvarez was made aware with no new orders. stated she will let the day team know.
[2024-07-12] MEDS: PIPER/TAZO 3.375 GM PREMIX 3.375 GM/50 ML BAG IV ×3 (05:51→22:54)
[2024-07-12 05:53] LABS: Basophils # (Auto) 0.1 Thou/mm3 (0.0-0.2); Basophils % (Auto) 0 % (0-2.5); Eosinophils # (Auto) 0.1 Thou/mm3 (0.0-0.5); Eosinophils % (Auto) 0 % (0-10); Hematocrit 35.2 % (36.0-46.0); Hemoglobin 12.1 g/dL (12.0-16.0); Immature Granulocytes % (Auto) 1 % (0-0); Immature Granulocytes Auto 0.09 Thou/mm3 (0.00-0.00); Lymphocytes # (Auto) 3.7 Thou/mm3 (1.0-4.8); Lymphocytes % (Auto) 20 % (10-50); Mean Corpuscular HGB Conc 34.4 g/dl (31.0-37.0); Mean Corpuscular Hemoglobin 29.3 pg (25.0-35.0); Mean Corpuscular Volume 85 fL (80-100); Monocytes # (Auto) 0.7 Thou/mm3 (0.0-0.8); Monocytes % (Auto) 4 % (0-12); Neutrophils # (Auto) 13.7 Thou/mm3 (1.8-7.7); Neutrophils % (Auto) 75 % (37-80); Nucleated Red Blood Cell % 0 /100 WBC (0); Platelet Count 393 Thou/mm3 (140-440); RDW Standard Deviation 40.9 fL (36.4-46.3); Red Blood Count 4.13 Miln/mm3 (4.00-5.20); White Blood Count 18.2 Thou/mm3 (3.6-11.0)
[2024-07-12 06:49] LABS: Alanine Aminotransferase 12 U/L (10-49); Albumin, Serum 3.6 gm/dL (3.4-4.8); Albumin/Globulin Ratio 1.6 (1.2-2.2); Alkaline Phosphatase 134 U/L (46-116); Anion Gap 9 (7-16); Aspartate Amino Transferase 10 U/L (0-34); BUN/Creatinine Ratio 21 Ratio (12-20); Bilirubin,Total < 0.2 mg/dL (0.3-1.2); Blood Urea Nitrogen 19 mg/dL (9-23); Calcium 8.9 mg/dL (8.3-10.6); Calcium (Corrected) 9.2 mg/dL (8.5-10.1); Carbon Dioxide 29.2 mMol/L (20.0-31.0); Chloride 102 mMol/L (98-107); Creatinine (Component) 0.9 mg/dL (0.6-1.3); Estimated Creatinine Clearance 49.9 mL/min (>60); Globulin 2.2 gm/dL (2.3-3.5); Glucose 277 mg/dL (74-106); Osmolality,Calculated 291 (275-295); Phosphorous 2.8 mg/dL (2.4-5.1); Potassium 4.1 mMol/L (3.4-5.1); Sodium 140 mMol/L (136-145); Total Protein 5.8 gm/dL (5.7-8.2); eGFR > 60 See Note
[2024-07-12] MEDS: INSULIN LISPRO (AdmeLOG) 1 UNIT/0.01 ML UNIT SC ×4 (07:35→20:34)
[2024-07-12] MEDS: SENNA TABLET 1 TAB PO (08:03)
[2024-07-12] MEDS: DAPAGLIFLOZIN PROPANEDIOL 5 MG TABLET 10 MG PO (08:03)
[2024-07-12] MEDS: APIXABAN 2.5 MG TABLET 5 MG PO ×2 (08:03→20:35)
[2024-07-12] MEDS: HYDROcodone/APAP 5/325 TABLET 1 TAB PO ×2 (08:04→17:02)
[2024-07-12] MEDS: Furosemide 20 MG TABLET PO (08:04)
--- NOTE | 2024-07-12 09:51 | ESPR_ITS ---
Documentation for date of: 07/12/24 Subjective - Hospitalist Subjective Interval history: Patient seen and evaluated this AM. She is eager to go home and has no acute complaints. She denies any chest pain, shortness of breath, fevers or chills. Exam Vital Signs Temp Pulse Resp BP Pulse Ox O2 Del Method O2 Flow Rate 97.1 F 60 19 118/57 L 97 Room Air 2 07/12/24 08:00 07/12/24 08:04 07/12/24 08:00 07/12/24 08:04 07/12/24 08:00 07/12/24 08:00 07/10/24 19:30 Narrative Gen: No acute distress HEENT: NCAT, PERRLOU, Sclera anicteric, conjunctiva noninjected, oral mucosa moist without erythema Neck: Supple, full range of motion, no LAD CV: RRR, no murmurs, rubs or gallops Resp: CTAB/L, no wheezing, rhonchi or rales GI: abdomen soft, bowel sounds noted, no tenderness to palpation, no guarding or rebound tenderness, no organomegaly : erythema and edema of right labia, improved. Skin: clean, dry, no rashes, lesions or ecchymosis Ext: no clubbing, cyanosis, or edema Neuro: A&O x3, CN II- XII intact b/l, no focal neurological deficits Objective - Hospitalist Labs Diagram: 07/12/24 05:16 07/12/24 05:16 Labs: Laboratory Results - last 24 hr 07/10/24 07/12/24 19:11 05:16 WBC 18.2 H D RBC 4.13 Hgb 12.1 Hct 35.2 L MCV 85 MCH 29.3 MCHC 34.4 RDW Std Deviation 40.9 Plt Count 393 Neut % (Auto) 75 Lymph % (Auto) 20 [place] % (Auto) 4 Eos % (Auto) 0 Baso % (Auto) 0 Neut # (Auto) 13.7 H Lymph # (Auto) 3.7 [place] # (Auto) 0.7 Eos # (Auto) 0.1 Baso # (Auto) 0.1 Immature Gran # (Auto) 0.09 H Absolute Nucleated RBC 0.00 Immature Gran % 1 H Nucleated RBC % 0 Sodium 140 Potassium 4.1 Chloride 102 Carbon Dioxide 29.2 Anion Gap 9 BUN 19 Creatinine 0.9 Estim Creat Clear Calc 49.9 L eGFR > 60 BUN/Creatinine Ratio 21 H Glucose 277 H Calculated Osmolality 291 Calcium 8.9 Corrected Calcium 9.2 Phosphorus 2.8 Magnesium 2.0 Total Bilirubin < 0.2 L AST 10 ALT 12 Alkaline Phosphatase 134 H D Total Protein 5.8 Albumin 3.6 Globulin 2.2 L Albumin/Globulin Ratio 1.6 Blood Bank Comment FFP Ready Assessment & Plan Assessment: 64-year-old female with past medical history of hypertension, CAD status post stenting left main coronary artery, prior history of [place], diabetes, CHF with ejection fraction 20% who presented to the ED due to right labial abscess. Patient will be admitted for management of right labial abscess extending to the perianal region requiring surgical intervention. #Right labial abscess extending to the perianal region #Lactic acidosis-resolved Patient had onset of right buttock pain about 9 days ago Initially abscess was drained by itself however suddenly stopped draining and increased in size until it became tender and patient was unable to sit in a chair or lay down CT pelvis shows large fluid collection consistent with an abscess in the right labia which extends to the right perianal region Lactic acidosis resolved after IVFs Status-post I&D with General Surgery Perineal wound cultures with gram-positive cocci pending speciation Plan: Continue IV Zosyn 3.375 every 8 hours and IV vancomycin pharmacy to dose General Surgery consulted, appreciate recommendations Multimodal pain management Follow-up final cultures and sensitivities of wound (currently growing GPCs) and urine cultures #Insulin-dependent type 2 diabetes Last A1c:8.9 (10/28/2023) Patient uses 40 units insulin at night Plan: Initiated glargine 30 units at bedtime SSI DC dapagliflozin due to UTI and abscess #Hypertension #Coronary artery disease status post stents to left main coronary artery #History of prior [place] #CHF [EF 20-25%] 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 Bowie in [place] On home Eliquis 5 mg p.o. twice daily, aspirin 81 mg daily, atorvastatin 80 mg, furosemide 20 mg, metoprolol tartrate 12.5 mg p.o. daily, spironolactone 25 mg Plan: Will discontinue Farxiga on discharge Pending surgery recommendations regarding restarting Eliquis; will resume 07/12 Restarted patient's Lasix 20 mg p.o. Health Maintenance: Disposition: Med telemetry, pending cultures Fluids: NS Diet: Carb consistent DVT prophylaxis: SCDs GI prophylaxis: Not indicated CODE STATUS: Full code Time Spent with Patient Time: Total time spent is greater than 50% in coordination of care (as documented) at patient's floor/unit and/or counseling patient: 35min Time with patient: 25 - 35 minutes Reason for Continued Stay Reason for continued stay: IV antibiotics Quality Measures Quality Measures none
--- NOTE | 2024-07-12 13:26 | PC.CC ---
Notified by MARIEL Machado, patient requesting Freestyle Praveen 3 Plus sensors and Freestyle Praveen 3 [place]. PA approved for both items. S/W patient and advised that her preferred [facility], is unable to fill these items. Patient requested these two items at [facility]. Added pharmacy to EMR. Requested prescriptions from Dr. Tello.
[2024-07-12] MEDS: INSULIN GLARGINE (Lantus) 5 UNIT/0.05 ML (PER 5 UNITS) 30 UNIT SC (20:32)
[2024-07-12] MEDS: VANCOMYCIN/NS 1 GM IVPB 200 ML IV (21:13)
[2024-07-13] VITALS (7 sets, daily range): BP systolic 107–146; BP diastolic 53–78; PULSE 59–93; RESP 16–98; TEMP 35.6–36.6; O2SAT 34–97
[2024-07-13] MEDS: PIPER/TAZO 3.375 GM PREMIX 3.375 GM/50 ML BAG IV (05:13)
[2024-07-13 06:07] LABS: Basophils # (Auto) 0.1 Thou/mm3 (0.0-0.2); Basophils % (Auto) 1 % (0-2.5); Eosinophils # (Auto) 0.3 Thou/mm3 (0.0-0.5); Eosinophils % (Auto) 3 % (0-10); Hematocrit 38.5 % (36.0-46.0); Hemoglobin 12.9 g/dL (12.0-16.0); Immature Granulocytes % (Auto) 1 % (0-0); Immature Granulocytes Auto 0.07 Thou/mm3 (0.00-0.00); Lymphocytes # (Auto) 4.6 Thou/mm3 (1.0-4.8); Lymphocytes % (Auto) 40 % (10-50); Mean Corpuscular HGB Conc 33.5 g/dl (31.0-37.0); Mean Corpuscular Hemoglobin 28.7 pg (25.0-35.0); Mean Corpuscular Volume 86 fL (80-100); Monocytes # (Auto) 0.6 Thou/mm3 (0.0-0.8); Monocytes % (Auto) 5 % (0-12); Neutrophils # (Auto) 5.7 Thou/mm3 (1.8-7.7); Neutrophils % (Auto) 50 % (37-80); Nucleated Red Blood Cell % 0 /100 WBC (0); Platelet Count 397 Thou/mm3 (140-440); RDW Standard Deviation 41.1 fL (36.4-46.3); White Blood Count 11.3 Thou/mm3 (3.6-11.0)
[2024-07-13 06:32] LABS: Alanine Aminotransferase 15 U/L (10-49); Albumin, Serum 3.8 gm/dL (3.4-4.8); Albumin/Globulin Ratio 1.5 (1.2-2.2); Alkaline Phosphatase 119 U/L (46-116); Anion Gap 9 (7-16); Aspartate Amino Transferase 14 U/L (0-34); BUN/Creatinine Ratio 18 Ratio (12-20); Bilirubin,Total 0.2 mg/dL (0.3-1.2); Blood Urea Nitrogen 14 mg/dL (9-23); Calcium 9.9 mg/dL (8.3-10.6); Calcium (Corrected) 10.1 mg/dL (8.5-10.1); Carbon Dioxide 30.9 mMol/L (20.0-31.0); Chloride 100 mMol/L (98-107); Creatinine (Component) 0.8 mg/dL (0.6-1.3); Estimated Creatinine Clearance 54.6 mL/min (>60); Globulin 2.5 gm/dL (2.3-3.5); Glucose 134 mg/dL (74-106); Osmolality,Calculated 281 (275-295); Phosphorous 3.6 mg/dL (2.4-5.1); Potassium 3.6 mMol/L (3.4-5.1); Sodium 140 mMol/L (136-145); Total Protein 6.3 gm/dL (5.7-8.2); eGFR > 60 See Note
[2024-07-13 06:47] LABS: Magnesium 2.1 mg/dL (1.6-2.6)
[2024-07-13] MEDS: APIXABAN 2.5 MG TABLET 5 MG PO (08:20)
[2024-07-13] MEDS: Furosemide 20 MG TABLET PO (08:20)
[2024-07-13] MEDS: HYDROcodone/APAP 5/325 TABLET 1 TAB PO (08:21)
[2024-07-13] MEDS: SENNA TABLET 1 TAB PO (08:21)
[2024-07-13] MEDS: INSULIN LISPRO (AdmeLOG) 1 UNIT/0.01 ML UNIT SC (11:26)
--- NOTE | 2024-07-13 11:47 | ESDS_ITS ---
<Statement entered by Shirley Tello DO - 07/14/24 07:33> I, Shirley Tello DO, attest that I was physically present for the freeman portions of the service and evaluated the patient with the resident and I reviewed and discussed the case with the resident and agree with the resident's findings and plans of care as documented above <Statement entered by Abhishek Farfan MD - 07/13/24 15:51> Patient was examined with the team including attending physician. Note reviewed, I agree with the discharge plan as documented. - Abhishek Farfan MD PGY2 Disclaimer: The document may contain phonetic/typographic errors due to voice recognition software. Planned Discharge Date 07/13/24 DS: Providers Provider Date of admission: 07/10/24 16:46 Primary care physician: ROBERT Ribeiro Admitting Provider: Shirley Tello DO Attending Provider on Admission: Shirley Tello DO Consults: 07/10/24 16:25 Consult to General Surgery Stat Comment: Consulting Provider: Maria Isbell Attending Provider on DC: Mack Simon MD Discharging Provider: Mack Simon MD DS: Diagnosis Problem List Completed Was Problem List Reviewed/Reconciled?: Yes Hospital Course Hospital Course Hospital course: 64-year-old female with past medical history of CAD status post stents to the left main coronary artery, history of [place], CHF with ejection fraction of 20%, hypertension, diabetes mellitus, history of abscess presented on 07/10 with draining abscess noted in the perineal and right labial region. In the ED, patient presented with normal vitals, leukocytosis, elevated lactic acid at 2.7, negative troponins, UA showing some bacteria and yeast. Pelvic CT showing large fluid collection consistent with abscess in the right labia with extension to the right perianal region. Patient in the ED received IV Zosyn and 2 L of IV fluid resuscitation. Patient was admitted for IV antibiotics and general surgery consultation for incision and drainage. On 07/10 patient had incision and drainage with general surgery without any acute complications. Patient's wound cultures grew GPC pending speciation; patient continued to be on IV vancomycin. On reassessment, patient made significant improvement and bandaged area was not oozing. Patient will be discharged with p.o. antibiotics but understands that depending on speciation might require a different antibiotic. Patient will be discharged with the following strict instructions. Please take Levofloxacin 750mg by mouth once a day for four more day for abscess Your insulin was changed from Lantus to Degludec; same dosage - 40 units at night Please follow-up with your PCP within 1-2 weeks after discharge Please follow-up with Dr. Isbell, General Surgery Stop taking Farxiga as this medication increases your risk of urinary tract infections and abscess formation Continue taking all other home medications as prescribed If your symptoms worsen or if you develop new chest pain, shortness of breath, abdominal pain or syncope - please come back to the ED immediately. Hospital Diagnosis: #Right labial abscess extending to the perianal region #Lactic acidosis-resolved #Insulin-dependent type 2 diabetes #Hypertension #Coronary artery disease status post stents to left main coronary artery #History of prior [place] #CHF [EF 20-25%] Mack Simon, PGY-1 Status at Discharge Overall status at discharge: patient is progressing back to baseline Time Spent with Patient Time attestation: Total time spent providing and/or coordinating discharge services: 45 minutes Time spent: Greater than 30 minutes Exam Vital Signs Temp Pulse Resp BP Pulse Ox O2 Del Method O2 Flow Rate 96.1 F L 93 16 121/65 93 L Room Air 2 07/13/24 08:00 07/13/24 08:20 07/13/24 08:00 07/13/24 08:20 07/13/24 08:00 07/13/24 08:00 07/10/24 19:30 Narrative Exam Physical Exam: GENERAL: Awake, answering questions appropriately, appears stated age HEENT: Moist mucosa. Eyes open, symmetrical, & clear CARDIO: Heart RRR, no obvious murmurs PULM: No noted coughing/dyspnea CTA B/L, no R/W/R GI: Abdomen soft, nondistended, no pain on palpation. BSx4 : Right labia region erythamtous; perineal area bandaged SKIN/MSK/EXT: No wounds/rashes/edema/amputations, no pain on palpation. Pedal pulses present B/L NEURO: AAOx3, no focal neuro deficits, able to move all 4 extremities Discharge Plan Plan Patient Disposition: HOME (Self Care) Patient condition on transfer: Stable Care Plan Goals: Please take Levofloxacin 750mg by mouth once a day for four more day for abscess Your insulin was changed from Lantus to Degludec; same dosage - 40 units at night Please follow-up with your PCP within 1-2 weeks after discharge Please follow-up with Dr. Isbell, General Surgery Stop taking Farxiga as this medication increases your risk of urinary tract i nfections and abscess formation Continue taking all other home medications as prescribed If your symptoms worsen or if you develop new chest pain, shortness of breath, abdominal pain or syncope - please come back to the ED immediately. Prescriptions/Referrals Prescriptions/Med Rec: New (DME) FreeStyle Praveen 3 Plus Sensor Device See Rx Instructions .Route Qty: 1 2RF Rx Instructions: As directed (DME) FreeStyle Praveen 3 [place] Misc See Rx Instructions .Route Qty: 1 2RF Rx Instructions: As directed levofloxacin 750 mg tablet 750 mg PO QDAY 4 Days Qty: 4 0RF insulin degludec 100 unit/mL (3 mL) insulin pen 40 unit subcut QDAY 30 Days Qty: 12 3RF Continued albuterol sulfate 2.5 mg /3 mL (0.083 %) solution for nebulization 2.5 mg inhalation PRN PRN (Reason: Shortness Of Breath Or Wheezing) atorvastatin 80 mg tablet 80 mg PO DAILY fluticasone propion-salmeterol [Advair Diskus] 500-50 mcg/dose blister with device 1 inh INHALATION PRN PRN (Reason: Shortness Of Breath Or Wheezing) Rx Instructions: 1 squirt aspirin 81 mg tablet,chewable 81 mg PO DAILY 30 Days Qty: 0 0RF (DME) FreeStyle Praveen 3 Sensor Device See Rx Instructions .Route Qty: 1 0RF Rx Instructions: As directed furosemide 20 mg tablet 20 mg PO QDAY Patient Comments: take 1 tablet by mouth once daily famotidine 20 mg tablet 20 mg PO HS PRN (Reason: stomach upset) Patient Comments: take 1 tablet by mouth at bedtime if needed spironolactone 25 mg tablet 25 mg PO QDAY Patient Comments: take 1 tablet by mouth once daily metoprolol tartrate 25 mg tablet 12.5 mg PO QDAY Patient Comments: take 1/2 tablet by mouth once daily with food Eliquis 5 mg tablet 5 mg PO BID Patient Comments: take 1 tablet by mouth twice a day Discontinued dapagliflozin propanediol [Farxiga] 10 mg tablet 10 mg PO QDAY Patient Comments: take 1 tablet by mouth once daily insulin glargine [Basaglar KwikPen U-100 Insulin] 100 unit/mL (3 mL) insulin pen 40 unit SUBCUT HS Rx Instructions: Q 8pm Referrals: Brody Guaman FNP [Primary Care Provider] - Maria Isbell MD [Physician] - (You will receive a phone call to confirm a follow-up appointment with me next week) Patient/Caregiver Discharge Instructions Education Materials: High Blood Sugar (Hyperglycemia), Glucose Check Steps, ED Abscess, Incision And Drainage Print Language: Citizen Of [place] Stand Alone Forms: [place] Award Info., Patient Portal Info Letter Discharge Order Discharge Orders: Discharge (Routine); Ordered 07/13/24 Ordered By: Mack Simon Quality Discharge Quality Measures VTE prophylaxis
== END 2024-07-13 12:42 | disposition home or self-care (01) | DRG 364 ==
LOC: SERX 16:26 → SERHOLD 16:55 → S3SX 19:54
PROVIDERS: Registered Nurse General Practice; Student in an Organized Health Care Education/Training Program; Surgery; Admitting Provider Internal Medicine; Emergency Provider Family Medicine; PCP Nurse Practitioner Family; Visit Provider Internal Medicine
DX: L02.215 Cutaneous abscess of perineum (principal); N76.4 Abscess of vulva; I25.10 Atherosclerotic heart disease of native coronary artery without angina pectoris; E87.8 Other disorders of electrolyte and fluid balance, not elsewhere classified; I11.0 Hypertensive heart disease with heart failure; I50.9 Heart failure, unspecified; N39.0 Urinary tract infection, site not specified; E11.9 Type 2 diabetes mellitus without complications; E87.1 Hypo-osmolality and hyponatremia; Z95.5 Presence of coronary angioplasty implant and graft; D75.839 Thrombocytosis, unspecified; L03.315 Cellulitis of perineum; F17.210 Nicotine dependence, cigarettes, uncomplicated; I25.5 Ischemic cardiomyopathy; J44.9 Chronic obstructive pulmonary disease, unspecified; I25.2 Old myocardial infarction; Z79.01 Long term (current) use of anticoagulants; Z79.82 Long term (current) use of aspirin; Z79.4 Long term (current) use of insulin
CPT/HCPCS: 36415; 72193; 80053; 80202; 81001; 83036; 83605; 83615; 83690; 83735; 83880; 84100; 84145; 84484; 85025; 85610; 85730; 86850; 86900; 86901; 86923; 86927; 87040; 87070; 87075; 87077; 87081; 87086; 87186; 87205; 93005; 93225; 96361; 96365; 99285; A4217; A4649; J0131; J1100; J1815; J2250; J2270; J2371; J2543; J2704; J2765; J3010; J3370; J3490; J7120; J8499; Q9967; A9270; J1805

== ENCOUNTER 2024-07-21 10:26 | Outpatient (AMB) | payer MEDICAID, SELFPAY ==
[2024-07-21 10:41] VITALS: BP 86/59; PULSE 92; RESP 19; TEMP 36.2; O2SAT 92; BMI 22.4
--- NOTE | 2024-07-21 10:41 | GSCOFFNT_ITS ---
Vital Signs - [facility] 07/21/24 10:41 Height 1.52 m Height Method Stated Weight 51.908 kg Weight Measurement Method Standing Scale BMI 22.4 BP 86/59 L Blood Pressure Source Automatic Cuff Blood Pressure Location Left Upper Arm Position Sitting Respiration 19 Pulse 92 Pulse Source Monitor Temp 97.2 F Temp Source Temporal Artery Scan Pulse Oximetry (%) 92 L Oxygen Delivery Method Room Air Med/Allergies Allergies & Medications Allergies No Known Allergies Allergy (Verified 07/21/24 10:41) Medication Reconciliation albuterol sulfate 2.5 mg/3 mL (0.083 %) solution for nebulization 2.5 mg inhalation PRN PRN Shortness Of Breath Or Wheezing 10/28/23 [History Confirmed 07/21/24] atorvastatin 80 mg tablet 80 mg PO DAILY 10/28/23 [History Confirmed 07/21/24] fluticasone 500 mcg-salmeterol 50 mcg/dose blistr powdr for inhalation (Advair Diskus) 1 inh inhalation PRN PRN Shortness Of Breath Or Wheezing 10/28/23 [History Confirmed 07/21/24] aspirin 81 mg chewable tablet 81 mg PO DAILY 30 days #0 tabs 10/30/23 [Rx Confirmed 07/21/24] blood-glucose sensor (FreeStyle Praveen 3 Sensor device) #1 ea 10/30/23 [Rx Confirmed 07/21/24] apixaban 5 mg tablet (Eliquis) 5 mg PO BID 07/10/24 [History Confirmed 07/21/24] famotidine 20 mg tablet 20 mg PO HS PRN stomach upset 07/10/24 [History Confirmed 07/21/24] furosemide 20 mg tablet 20 mg PO QDAY 07/10/24 [History Confirmed 07/21/24] metoprolol tartrate 25 mg tablet 12.5 mg PO QDAY 07/10/24 [History Confirmed 07/21/24] spironolactone 25 mg tablet 25 mg PO QDAY 07/10/24 [History Confirmed 07/21/24] blood-glucose sensor (FreeStyle Praveen 3 Plus Sensor device) #1 ea 07/12/24 [Rx Confirmed 07/21/24] 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-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,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,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 (FreeStyle Praveen 3 [place]) #1 ea 07/12/24 [Rx Confirmed 07/21/24] insulin degludec 100 unit/mL (3 mL) subcutaneous pen 40 unit (0.4 mL) subcut QDAY 1 month #12 mL 07/13/24 [Rx Confirmed 07/21/24] FRACISCO Intake Visit Data Collection New Patient or Established: Established Patient (seen at [facility] within 3 years) Seen by Clinical Staff ONLY (RN/FRACISCO): No Reason for Visit:: FOLLOW UP ABSCESS Pain Present Currently: Yes (WITH MOVEMENT) Pain Location: Unable to identify Pain scale:: 4 PCP or OBGYN visit in last 3 months: Yes Hx Now: No Do You Feel Safe at Home: Yes Authorities Contacted: N/A Smoking Status Smoking Status: Current every day smoker Cessation Counseling Provided: HERMINIA was advised that quitting smoking is the single most important factor to protect the health of themselves and their family. Discussed the benefits of quitting smoking with patient. Encouraged patient to quit smoking and provided Cessation assistance materials and resources. 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.); Negative Seizures CARDIAC: Positive Cardiac Disorders, Myocardial Infarction, Coronary Artery Disease and Hypertension; Negative Congestive Heart Failure RESPIRATORY: Positive Asthma (copd); Negative Chronic Obstructive Pulmonary Disease (COPD) GENITOURINARY: Negative Renal Disease REPRODUCTIVE: Positive Previous Pregnancies ENDOCRINE: Positive Diabetes Mellitus Type 2; Negative Diabetes Mellitus Type 1 HEMATOLOGIC: Negative Blood Disorders, Anemia or Sickle Cell Disease OTHER HISTORY: Negative Blood Transfusions, Blood Transfusion Reaction or Anesthesia Reactions Family History FAMILY HISTORY: Positive Family Cardiac Disorders Surgical History SURGICAL: Positive Coronary Stent Social History SMOKING STATUS: Smoking status: Current every day smoker ALCOHOL: Alcohol Intake: Never HOUSING: Housing: Apartment LIVES WITH: Lives With: Family HPI HPI Narrative 64F with CAD s/p stent placement 10/2023 on Eliquis, CHF, DM presenting with right perineal pain with findings of large abscess s/p urgent I&D 07/10 here for planned follow up. Pt states she feels well overall with minimal pain, she completed her oral antibiotics and her blood sugars have been well-controlled. She is still having some drainage from the wound which she is managing well ROS Review of Systems Systems Reviewed: All systems reviewed, normal except as documented Objective/Exam General General Appearance: alert, cooperative and well groomed Resp Respiratory exam: Absent respiratory distress External exam: Present other (right perineal incision with no surrounding erythema, no fluctuance or tenderness; tissue inside the wound is healthy pink, no necrotic or fibrinous tissue) Assessment & Plan Diagnosis / Problem List (1) Abscess, perianal: Status: Acute Assessment & Plan: 64F with CAD s/p stent placement 10/2023 on Eliquis, CHF, DM presenting with right perineal pain with findings of large abscess s/p urgent I&D 07/10, recovering well Plan: Follow up as needed Office Procedures GNS Level of Care Nursing/Assessment Patient Status: Established Patient Nursing Assessment/Reassesment: Medication Reconciliation, Update PMH in EMR and Vital Signs Coordination of Care: Complex Care and Chronic Disease 1-5, Consent,records obtained, informed consent, Education Simp Pt/Fam, Results/Orders obtained and Staff clarify orders Established Patient Charge Established Patient Point Assignment: 90 Established Patient Point Charge: EP Level 3 (80-115) Patient Portal Questionaires Social History Living Situation History Housing: Apartment Housing Other:: Pt is alert/oriented Tobacco History Smoking Status: Current every day smoker Alcohol History Alcohol Intake: Never Domestic Abuse History Do You Feel Safe at Home: Yes Review of Systems Report any current symptoms Only answer those that you have currently: Past Medical History Past Medical History Have you ever been diagnosed with any of the following: Neurological Problems Seizures: No Ashby's Palsy: Yes (when she had a stroke, pt not sure if has ashby's palsy.) Cardiology Problems Myocardial Infarction: Yes Coronary Artery Disease: Yes Congestive Heart Failure: No Hypertension: Yes Respiratory Problems Chronic Obstructive Pulmonary Disease (COPD): No Asthma: Yes (copd) Genital/Urinary Problems Renal Disease: No Reproductive Problems Previous Pregnancies: Yes Endocrine Problems Diabetes Mellitus Type 1: No Diabetes Mellitus Type 2: Yes Blood Problems Anemia: No Sickle Cell Disease: No Other Problems Blood Transfusions: No Blood Transfusion Reaction: No Anesthesia Reactions: No
== END 2024-07-21 11:05 | disposition home or self-care (01) ==
LOC: HODSRG 10:26
PROVIDERS: PCP Nurse Practitioner Family; Referring Provider Nurse Practitioner Family; Supervising Provider Surgery; Visit Provider Surgery
DX: Z48.817 Encounter for surgical aftercare following surgery on the skin and subcutaneous tissue (principal); I10 Essential (primary) hypertension; I25.10 Atherosclerotic heart disease of native coronary artery without angina pectoris; E11.9 Type 2 diabetes mellitus without complications; I25.2 Old myocardial infarction
CPT/HCPCS: 99213; G0463